=== PATIENT | female | born 1960 | race Hispanic/Latino ===

== ENCOUNTER 2020-12-23 10:35 | Day surgery (SDC) | payer OTHER ==
[2020-12-23] MEDS ORDERED: Sodium Bicarbonate 2.5 MEQ/5 ML VIAL ONE (11:06)
[2020-12-23] MEDS ORDERED: Lidocaine 1% PF 5 ML VIAL ONE (11:06)
== END 2020-12-23 12:30 | disposition home or self-care (01) ==
LOC: CSHULT 10:35
PROVIDERS: ATTEND Otolaryngology Otolaryngic Allergy
PROC: 0JJS3ZZ Inspection of Head and Neck Subcutaneous Tissue and Fascia, Percutaneous Approach (ICD-10-PCS; principal; 2020-12-23)
DX: E04.1 Nontoxic single thyroid nodule (principal); E07.9 Disorder of thyroid, unspecified; Z85.850 Personal history of malignant neoplasm of thyroid
CPT/HCPCS: 10005; 88173; 88305